=== PATIENT | female | born 1995 | race Caucasian/White ===

== ENCOUNTER 2023-08-05 00:35 | Inpatient (IN) | payer MEDICAID ==
[~2023-08-05] VITALS: Ht 152.4 cm; Wt 42.4 kg
[2023-08-05] VITALS (9 sets, daily range): BP systolic 83–95; BP diastolic 46–61; PULSE 74–105; TEMP 98.1–98.5
[~2023-08-05 00:35] MED LIST: CEFTIN500 MG PO; INDOCIN 25MG CA25 MG PO; MACROBID 1100 MG/CAP PO; ROBAXIN 50500 MG/TAB PO
[2023-08-05] MEDS ORDERED: NS 1,000 ML IV ONE ×3 (01:30→15:45)
[2023-08-05] MEDS ORDERED: Ketorolac 15 MG/ML VIAL IV ONE (01:30)
[2023-08-05 01:54] LABS: COLLECTION METHOD CLEAN CATCH
[2023-08-05 02:02] LABS: HEMATOCRIT 37.3 % (37.0-47.0); HEMOGLOBIN 12.8 g/dl (12.5-16.0); MEAN CELL VOLUME 92 fl (80.0-100.0); MEAN CORPUSCULAR HEMOGLOBIN 32 pg (27-31); MEAN CORPUSCULAR HGB CONC 34 g/dl (33.0-37.0); MEAN PLATELET VOLUME 9.8 fl (7.4-10.4); PLATELET COUNT 205 K/mm3 (130-400); RED BLOOD COUNT 4.05 M/mm3 (4.10-5.30); REDCELL DISTRIBUTION WIDTH-CV 11.5 % (11.5-14.5)
[2023-08-05 02:09] LABS: INR 1.3 (0.8-3.0)
[2023-08-05 02:19] LABS: ALBUMIN 3.6 g/dL (3.5-5.0); BILIRUBIN,TOTAL 0.6 mg/dL (0.2-1.2); CALCIUM 9.1 mg/dL (8.4-10.2); CREATININE, serum 0.77 mg/dL (0.57-1.11); MAGNESIUM 1.8 mg/dL (1.6-2.6); POTASSIUM 3.7 mEq/L (3.5-4.5); TOTAL PROTEIN 6.6 g/dl (6.2-8.1)
[2023-08-05 02:23] LABS: D-DIMER < 200.00 ng/mLDDu (200-230)
[2023-08-05 02:29] LABS: URINE APPEARANCE CLOUDY (CLEAR/HAZY); URINE BLOOD NEGATIVE (NEGATIVE); URINE COLOR YELLOW (YELLOW); URINE GLUCOSE NEGATIVE (NEGATIVE); URINE KETONE NEGATIVE (NEGATIVE); URINE NITRATE NEGATIVE (NEGATIVE); URINE PROTEIN(semi-quant) NEGATIVE (NEGATIVE)
[2023-08-05] MEDS ORDERED: Azithromycin 500 MG in NS 250 ML IV ONE (02:30)
[2023-08-05] MEDS ORDERED: cefTRIAXone 2 G in Water For Injection,Sterile 20 ML IV ONE (02:30)
[2023-08-05 02:39] LABS: THYROID STIMULATING HORMONE 1.335 uIU/mL (0.350-4.940)
[2023-08-05 02:45] LABS: TRICYCLIC ANTIDEPRESS URINE NEGATIVE (NEGATIVE)
[2023-08-05 02:47] LABS: BAND 13 % (0-10); LYMPHOCYTE 3 % (20.0-51.0); NEUTROPHILS 82 % (42.0-75.2); PLATELET ESTIMATE NORMAL (NORMAL)
[2023-08-05] MEDS ORDERED: Acetaminophen 325 MG TAB PO PRN (05:00)
[2023-08-05] MEDS ORDERED: Azithromycin 500 MG in NS 250 ML IV SCH (05:00)
[2023-08-05] MEDS ORDERED: LR 1,000 ML IV SCH (05:15)
[2023-08-05] MEDS ORDERED: Ondansetron 4 MG/2 ML VIAL IV PRN (06:00)
[2023-08-05] MEDS ORDERED: Albuterol/Ipratropium 3 MG-0.5 MG/3 ML Neb Soln IH PRN (06:15)
--- NOTE | 2023-08-05 06:37 | NUR ---
Pt transferred from ED to room 315 via hospital bed @ approx 0605. Pt is A&Ox4. RR even and unlabored. NAD present. Skin is warm, dry, and intact. PIV in RAC w/ LR infusing @ 75ml/hr. VS obtained and BP is hypotensive. PEDRO Curtis aware of VS. Admission completed. Pt oriented to room and call light. Pt able to verbalize understanding. Pt denies any needs or concerns at this time. All questions answered. Call light in reach. Care ongoing.
--- NOTE | 2023-08-05 06:49 | NUR ---
Agree with admitting assessment, resting quietly at this time.
[2023-08-05] MEDS ORDERED: Albuterol/Ipratropium 3 MG-0.5 MG/3 ML Neb Soln IH SCH (08:00)
--- NOTE | 2023-08-05 08:00 | NUR ---
PT LAYING IN BED UPON ENTERING. ASSESSMENT DONE, MEDS GIVEN PER ORDER. LR RUNNING AT 75 MLS/HR PER ORDER IN RIGHT AC. PT REPORTS CHEST PAIN ONLY WITH DEEP INSPIRATION AND DENIES PAIN AT THIS TIME. PT DENIES NEEDS AT THIS TIME. BED IN LOWEST POSITION, CALL LIGHT IN REACH
[2023-08-05] MEDS ORDERED: Pantoprazole 40 MG in NS 10 ML IV SCH (09:00)
--- NOTE | 2023-08-05 09:47 | NUR ---
IV FLUIDS CHANGED TO 100 MLS/HR PER ORDER
--- NOTE | 2023-08-05 10:19 | NUR ---
NO ORDER FOR TELE. THIS NURSE CALLED PROVIDER AND ASKED IF HE WANTS ORDER FOR TELE. TELE NOT NEEDED PER PROVIDER. PROVIDER AWARE OF PTS LOW BLOOD PRESSURES
[2023-08-05] MEDS ORDERED: dexAMETHasone 10 MG/ML VIAL IV SCH (15:30)
--- NOTE | 2023-08-05 15:34 | NUR ---
PTS BLOOD PRESSURE CONTINUE IN 80S/50S, DR GUERRERO AWARE. THIS NURSE CALLED CRAIG MENA, AND UPDATED HER. PT ASYMPTOMATIC AND DENIES NEEDS.
--- NOTE | 2023-08-05 17:36 | NUR ---
Quality Control Supervisor met with patient to discuss discharge planning. 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 Patient does not have primary care and SW discussed [facility] as they accept patient's insurance. GEOFF provided patient with contact information to [facility] and encouraged her to go online and/or call to complete new patient paperwork to get scheduled and established. Patient gets her medications from [facility] pharmacy and does not use any DME. Patient is independent with [facility]LS and plans to return home at time of discharge. Patient does not have DPOA-HC. Patient has two children, ages 10 and 4. Patient is not and her parents, Rodrigo and Misty are her legal next of kin. Discharge Plan: Home
--- NOTE | 2023-08-05 18:40 | NUR ---
LR HUNG PER ORDER. PT DENIES PAIN OR SHORTNESS OF BREATH AT THIS TIME. FAMILY AT BEDSIDE AND PT DENIES NEEDS. BED IN LOWEST POSITION, CALL LIGHT IN REACH
[2023-08-06] VITALS (12 sets, daily range): BP systolic 91–99; BP diastolic 55–63; PULSE 63–77; TEMP 97.7–98.3
[2023-08-06] MEDS ORDERED: cefTRIAXone 1 G in Water For Injection,Sterile 10 ML IV SCH (04:00)
--- NOTE | 2023-08-06 09:30 | NUR ---
PT LAYING IN BED UPON ENTERING. ASSESSMENT DONE, MEDS GIVEN PER ORDER. PT DENIES PAIN. LR RUNNING AT 100 MLS/HR IN RIGHT AC PER ORDER. PT DENIES NEEDS. BED IN LOWEST POSITION, CALL LIGHT IN REACH
[2023-08-06 10:38] LABS: HEMOGLOBIN 11.3 g/dl (12.5-16.0); MEAN CELL VOLUME 91 fl (80.0-100.0); MEAN CORPUSCULAR HEMOGLOBIN 31 pg (27-31); MEAN CORPUSCULAR HGB CONC 35 g/dl (33.0-37.0); MEAN PLATELET VOLUME 9.8 fl (7.4-10.4); PLATELET COUNT 163 K/mm3 (130-400); REDCELL DISTRIBUTION WIDTH-CV 11.5 % (11.5-14.5)
[2023-08-06 10:42] LABS: HEMATOCRIT 32.7 % (37.0-47.0)
[2023-08-06 10:52] LABS: ANION GAP 7 mmol/L (7-16); CALCIUM 8.2 mg/dL (8.4-10.2); CHLORIDE 115 mEq/L (98-107); CREATININE, serum 0.68 mg/dL (0.57-1.11); GLUCOSE 141 mg/dL (70-99); POTASSIUM 3.5 mEq/L (3.5-4.5); SODIUM 141 mEq/L (136-145)
[2023-08-06 11:10] LABS: BLOOD UREA NITROGEN < 5 mg/dL (7-19)
[2023-08-07] VITALS (7 sets, daily range): BP systolic 93–106; BP diastolic 52–64; PULSE 76–84; TEMP 98.2–98.4
[2023-08-07 06:29] LABS: BASO % 0.2 % (0.0-2.0); EOS % 0.2 % (0.0-4.0); GRAN # 9.1 K/mm3 (1.4-6.5); GRAN % 81.7 % (42.2-75.2); LYMPH # 1.4 K/mm3 (1.2-3.4); LYMPH % 12.5 % (20.0-51.0); MEAN CELL VOLUME 94 fl (80.0-100.0); MEAN CORPUSCULAR HEMOGLOBIN 32 pg (27-31); MEAN CORPUSCULAR HGB CONC 34 g/dl (33.0-37.0); MEAN PLATELET VOLUME 10.3 fl (7.4-10.4); MONO # 0.6 K/mm3 (0.1-0.6); PLATELET COUNT 172 K/mm3 (130-400); RED BLOOD COUNT 3.45 M/mm3 (4.10-5.30); REDCELL DISTRIBUTION WIDTH-CV 11.8 % (11.5-14.5)
[2023-08-07 06:42] LABS: HEMATOCRIT 32.3 % (37.0-47.0)
--- NOTE | 2023-08-07 09:00 | NUR ---
PT LAYING IN BED UPON ENTERING. ASSESSMENT DONE, MEDS GIVEN PER ORDER. LR RUNNING AT 100 MLS/HR PER ORDER. PT DENIES PAIN OR NEEDS AT THIS TIME. BED IN LOWEST POSITION, CALL LIGHT IN REACH, BED ALARM ON
[2023-08-07 09:33] LABS: BLOOD UREA NITROGEN 5 mg/dL (7-19); CALCIUM 8.3 mg/dL (8.4-10.2); CHLORIDE 112 mEq/L (98-107); CREATININE, serum 0.65 mg/dL (0.57-1.11); GLUCOSE 112 mg/dL (70-99); POTASSIUM 3.5 mEq/L (3.5-4.5); SODIUM 141 mEq/L (136-145)
[2023-08-07 09:34] LABS: ALBUMIN 3.4 g/dL (3.5-5.0); MAGNESIUM 1.7 mg/dL (1.6-2.6)
[2023-08-07] MEDS ORDERED: CEFTIN500 MG PO (10:29)
[2023-08-07] MEDS ORDERED: DOXYCYCLINE 10100 MG PO (10:29)
[2023-08-07] MEDS ORDERED: PROAIR HFA0.09 MG/AC IH (10:31)
[2023-08-07] MEDS ORDERED: RT ADVAIR HFA 1112 G IH (10:31)
[2023-08-07] MEDS ORDERED: PREDNISONE20 MG PO (10:32)
--- NOTE | 2023-08-07 12:40 | NUR ---
IV REMOVED AND PT DRESSED IN PERSONAL CLOTHES. DISCHARGE INSTRUCTIONS GIVEN TO PT. PT DENIES QUESTIONS AND VERBALIZED UNDERSTANDING. PT ESCORTED TO PERSONAL VEHICLE BY PCT
== END 2023-08-07 13:17 | disposition home or self-care (01) | DRG 872 ==
LOC: COL.ER 00:35 → MEDICAL 05:00
PROVIDERS: Internal Medicine; ADMIT Internal Medicine
DX: A41.9 Sepsis, unspecified organism (principal); Z20.822 Contact with and (suspected) exposure to COVID-19; I95.9 Hypotension, unspecified; U07.0 Vaping-related disorder; R91.8 Other nonspecific abnormal finding of lung field; J45.909 Unspecified asthma, uncomplicated; T38.0X5A Adverse effect of glucocorticoids and synthetic analogues, initial encounter; Q67.6 Pectus excavatum; Z23 Encounter for immunization
CPT/HCPCS: C9113; J0456; J0696; J1100; J1885; J2405; J7030; J7050; J7120